=== PATIENT | male | born 1975 | race Caucasian/White ===

== ENCOUNTER 2024-11-22 18:44 | Emergency (ER) | payer OTHER ==
[~2024-11-22] VITALS: Ht 175.3 cm; Wt 106.6 kg
[2024-11-22 18:56] VITALS: BP 191/118
[2024-11-22 19:31] LABS: BASOPHILS ABSOLUTE AUTO 0.06 K/mm3 (0.00-0.23); BASOPHILS PERCENT AUTO 1 % (0-2); EOSINOPHILS ABSOLUTE AUTO 0.56 K/mm3 (0.00-0.68); EOSINOPHILS PERCENT AUTO 4 % (0-6); Hematocrit 50.1 % (37.0-53.0); Hemoglobin 17.5 g/dL (13.5-17.5); IMMATURE GRAN ABSOLUTE AUTO 0.08 K/mm3 (0.00-0.10); IMMATURE GRAN PERCENT AUTO 1 % (0-1); LYMPHOCYTES ABSOLUTE AUTO 4.64 K/mm3 (0.84-5.20); LYMPHOCYTES PERCENT AUTO 36 % (21-46); MONOCYTES ABSOLUTE AUTO 0.76 K/mm3 (0.16-1.47); MONOCYTES PERCENT AUTO 6 % (4-13); Mean Corpuscular HGB 31.1 pg (26.0-34.0); Mean Corpuscular HGB Conc 34.9 g/dL (31.5-36.5); Mean Corpuscular Volume 89 fL (80-100); Mean Platelet Volume 9.4 fL (9.1-12.4); NEUTROPHILS ABSOLUTE AUTO 6.83 K/mm3 (1.96-9.15); NEUTROPHILS PERCENT AUTO 53 % (41-73); Platelet Count 213 K/mm3 (150-400); RDW Coefficient Variation 13.8 % (11.7-14.2); RDW Standard Deviation 44.1 fL (35.1-46.3); Red Blood Cell Count 5.62 M/mm3 (4.30-5.90); White Blood Cell Count 12.93 K/mm3 (4.00-11.30)
[2024-11-22 20:00] LABS: Albumin, Blood 4.1 g/dL (3.4-5.0); Bilirubin, Total 0.7 mg/dL (0.1-1.0); Bun/Creatinine Ratio 17.3 (12.0-20.0); Calcium, Blood 8.9 mg/dL (8.5-10.1); Creatinine, Blood 1.04 mg/dL (0.60-1.20); Globulin, Blood 4.2 g/dL (2.2-4.0); Total Protein, Blood 8.3 g/dL (6.4-8.2)
[2024-11-22] MEDS ORDERED: Ondansetron HCl 2 MG / ML 2ML Vial IV ONE (21:15)
[2024-11-22] MEDS ORDERED: NS 1,000 ML IV SCH (21:15)
[2024-11-22] MEDS ORDERED: Morphine Sulfate 4 MG/1 ML Injection IV ONE (21:15)
[2024-11-22] MEDS ORDERED: Famotidine 10 MG/ML 2ML Vial IV ONE (21:20)
[2024-11-22] MEDS ORDERED: Acetaminophen 500 MG Tab PO ONE (22:00)
[2024-11-22] MEDS ORDERED: HYDROmorphone HCl/Pf 1MG SYR IV ONE (22:00)
[2024-11-22] MEDS ORDERED: Ketorolac Tromethamine 15mg Vial IV ONE (22:00)
[2024-11-22] MEDS ORDERED: IBUP600 PO (22:56)
[2024-11-22] MEDS ORDERED: ACET500 PO (22:56)
[2024-11-22] MEDS ORDERED: FAMO20 PO (22:56)
== END 2024-11-22 23:20 | disposition home or self-care (01) ==
LOC: ER 18:44
PROVIDERS: Student in an Organized Health Care Education/Training Program
DX: K80.20 Calculus of gallbladder without cholecystitis without obstruction (principal)
CPT/HCPCS: 71045; 76705; 80053; 83690; 84484; 85025; 93005; 93010; 96361; 96374; 96375; 99284-25; A9270; J1171; J1885; J2270; J2405; J7030